=== PATIENT | female | born 1970 | race Caucasian/White ===

== ENCOUNTER 2018-06-21 21:51 | Emergency (ER) | payer OTHER ==
[2018-06-21 21:57] VITALS: BP 138/93; PULSE 117; TEMP 98.4; BMI 30.6
[2018-06-21] MEDS ORDERED: diphenhydrAMINE HCL 25 MG CAPSULE (FP) PO ONE ×2 (22:13→22:15)
--- NOTE | 2018-06-21 22:17 | PDOC ---
History of Present Illness - General Stated Complaint: RIGHT LIP SWELLING Time Seen by Provider: 06/21/18 22:07 - History of Present Illness Initial Comments: 06/21/18 22:13 48-year-old female without comorbidities presents for evaluation of right-sided facial swelling times one day. She states the swelling started today without any precipitating event. There is no associated pain itching there is mild swelling and redness. Of note she did develop some chest pain last week and again on yesterday she went to the pharmacist who placed her on a course of Pepcid she took one tablet and her pain has subsided and has not returned. No other associated symptoms. Past History - Past Medical History Allergies/Adverse Reactions: Allergies Allergy/AdvReac Type Severity Reaction Status Date / Time No Known Allergies Allergy Verified 06/21/18 21:59 Home Medications: Ambulatory Orders No Home Medications 0 dose .ROUTE UTDICT 08/30/13 COPD: No - Immunization History Immunization Up to Date: Yes - Suicide/Smoking/Psychosocial Hx Smoking History: Never smoked Have you smoked in the past 12 months: No Hx Alcohol Use: No Substance Use Type: None Review of Systems - Review of Systems HEENTM: Yes: See HPI, Mouth Swelling All Other Systems: Reviewed and Negative *Physical Exam - Vital Signs Last Vital Signs Temp Pulse Resp BP Pulse Ox 98.4 F 117 H 18 138/93 100 06/21/18 21:53 06/21/18 21:53 06/21/18 21:53 06/21/18 21:53 06/21/18 21:53 - Physical Exam Comments: 06/21/18 22:14 HEAD: NC/AT EYES: Conjuntiva clear Ears: Canals and TM's normal NOSE: No d/c THROAT: Moist mucous membrances, oral pharanx clear, uvula midline, there is mild erythema without induration sensitivity or fluctuance at the corner of the right lower lip extending distally to the chin. There appears to be a bug bite adjacent to the area of erythema. The inside of the mouth is clear NECK: Supple without adenopathy CARDIAC: S1 S2 LUNGS: CTA Full and Equal breath sounds ABDOMEN: Soft NT ND MS: Full ROM in all joints without edema NEUROLOGIC: No gross sensory or motor deficits, NVID SKIN: Normal color and temperature no lesions or rashes Medical Decision Making - Medical Decision Making This appears to be a localized ALLERGIC reaction possibly from a bug bite I will give her Benadryl in the ER and have her follow-up with her primary care physician this does not appear to be infectious 06/21/18 22:15 *DC/Admit/Observation/Transfer Diagnosis at time of Disposition: Allergic reaction - Discharge Dispostion Disposition: HOME Condition at time of disposition: Stable Decision to Admit order: No - Referrals Referrals: Elo Dawson MD [Staff Physician] - Vitaly Alfaro MD [Staff Physician] - Stacey De La Paz MD [Staff Physician] - Gal Muller MD [Staff Physician] - Luz Vera MD [Staff Physician] - Dalia De La Paz MD [Staff Physician] - - Patient Instructions Printed Discharge Instructions: DI for General Allergic Reactions Additional Instructions: Return to the emergency room should symptoms worsen or go unresolved. Please follow-up with the primary care physician I recommended for you in one to 2 days for further evaluation and treatment options. May take Benadryl 25 mg every 6 hours as directed for relief of symptoms of the facial swelling. At this point it does not appear to be infectious however if she develops fever with the area becomes increasingly red and painful please report back to the emergency room. - Post Discharge Activity
== END 2018-06-21 22:19 | disposition home or self-care (01) ==
LOC: JER 21:51 → JERFT 21:51
DX: T78.40XA Allergy, unspecified, initial encounter (principal)
CPT/HCPCS: 99281-25

== ENCOUNTER 2022-09-16 18:52 | Emergency (ER) | payer OTHER ==
[2022-09-16 19:02] VITALS: RESP 18; BMI 31.8
[2022-09-16] MEDS ORDERED: ACETAMINOPHEN 1000 MG/100 ML BAG IVPB ONE (19:56)
[2022-09-16] MEDS ORDERED: SODIUM CHLORIDE 1,000 ML IV STA (19:56)
[2022-09-16] MEDS ORDERED: ACETAMINOPHEN INJECTION 100 ML IVPB ONE (20:21)
[2022-09-16 21:02] LABS: BASO % 0.4 % (0-2.0); EOS % 1.3 % (0-4.5); HEMATOCRIT 39.8 % (32.4-45.2); HEMOGLOBIN 12.6 GM/dL (10.7-15.3); LYMPH % 28.5 % (8-40); MCH 26.2 pg (25.7-33.7); MCHC 31.6 g/dl (32.0-36.0); MEAN CELL VOLUME 82.7 fl (80-96); MONO % 6.9 % (3.8-10.2); NEUT % 62.9 % (42.8-82.8); PLATELET COUNT 274 10^3/uL (134-434); RBC 4.81 M/mm3 (3.60-5.2); RDW 14.9 % (11.6-15.6)
[2022-09-16 21:22] LABS: EPI CELLS 11 /uL (0-25.1); HYALINE CASTS 0 /uL (0-3.1); URINE APPEARANCE CLEAR; URINE BACTERIA 14 /uL (0-1359); URINE BILIRUBIN NEGATIVE (NEGATIVE); URINE COLOR YELLOW; URINE GLUCOSE (UA) NEGATIVE (NEGATIVE); URINE KETONE NEGATIVE (NEGATIVE); URINE LEUK ESTERASE 2+ (NEGATIVE); URINE NITRITE NEGATIVE (NEGATIVE); URINE PROTEIN NEGATIVE (NEGATIVE); URINE RBC 11 /uL (0-23.9); URINE UROBILINOGEN 0.2 mg/dL (0.2-1.0); URINE WBC 22 /uL (0-25.8)
[2022-09-16 21:25] LABS: ALBUMIN 3.7 g/dl (3.4-5.0); BLOOD UREA NITROGEN 18.4 mg/dL (7-18)
[2022-09-16 21:29] LABS: BILIRUBIN,TOTAL 0.3 mg/dL (0.2-1); TOT PROT 7.4 g/dl (6.4-8.2)
[2022-09-16 22:18] VITALS: BP 112/68; PULSE 91; TEMP 98.5
== END 2022-09-16 22:45 | disposition home or self-care (01) ==
LOC: JER 18:52
PROC: 3E0333Z Introduction of Anti-inflammatory into Peripheral Vein, Percutaneous Approach (ICD-10-PCS; principal; 2022-09-16)
PROC: 3E0337Z Introduction of Electrolytic and Water Balance Substance into Peripheral Vein, Percutaneous Approach (ICD-10-PCS; 2022-09-16)
DX: D25.9 Leiomyoma of uterus, unspecified (principal)
CPT/HCPCS: 36415; 76830-TC; 80053; 81003; 85025; 87070; 87086; 87205; 99284-25